=== PATIENT | male | born 1980 | race Native Hawaiian/Other Pacific Islander ===

== ENCOUNTER 2024-08-02 10:43 | Outpatient (REF) | payer MEDICAID, SELFPAY ==
[2024-08-04 19:49] LABS: RPR Rapid Plasma Reagin NON-REACTIVE (NON-REACTIVE)
[2024-08-04 20:04] LABS: TS Negative Control Passed; TS Panel A 0; TS Panel B 0; TS Positive Control Passed; TSpotTB Negative (Negative)
== END 2024-08-02 10:44 | disposition home or self-care (01) ==
LOC: HO.HHCL 10:43
PROVIDERS: Visit Provider Internal Medicine
DX: Z02.89 Encounter for other administrative examinations (principal)
CPT/HCPCS: 36415; 86481; 86592